=== PATIENT | female | born 1975 | race Two or more races ===

== ENCOUNTER 2021-09-06 14:08 | Outpatient (REF) | payer MEDICAID, SELFPAY ==
--- NOTE | ~2021-09-06 | XR_ITS ---
EXAMINATION: XR KNEE, LEFT CLINICAL INFORMATION: Pain. COMPARISON: None TECHNIQUE: Four views of the left knee. FINDINGS: Bones and soft tissues are normal. No fracture or joint effusion. Alignment is anatomic. Joint spaces are well maintained. No abnormal soft tissue calcification. XR/XR knee LT 2V IMPRESSION: Unremarkable left knee.
[2021-09-06 15:23] LABS: Basophils Absolute Auto 0.1 X10*3/uL (0.0-0.2); Hemoglobin 7.8 g/dl (12.0-16.0); Mean Corpuscular Hemoglobin 16.4 pg (27.0-33.0); Monocytes Percent Auto 8.7 % (2-11); Red Cell Distribution Width 22.8 % (11.0-16.0); SCAN SMEAR FLAG 1
[2021-09-06 15:25] LABS: Eosinophils Absolute Auto 0.2 X10*3/uL (0.0-0.4); Eosinophils Percent Auto 3.3 % (0-4); Hematocrit 29.3 % (37.0-47.0); Imm Gran Abs Auto 0.02 X10*3/uL (0.00-0.03); Imm Gran Pct Auto 0.3 % (0.0-0.4); Lymphocytes Absolute Auto 1.9 X10*3/uL (1.2-4.9); Lymphocytes Percent Auto 33.6 % (20-40); MANUAL DIFF FLAG SCAN; Mean Corpuscular HGB Conc 26.6 g/dl (31.0-35.0); Mean Platelet Volume 9.9 fL (9.4-12.3); Monocytes Absolute Auto 0.5 X10*3/uL (0.1-1.2); Neutrophils Absolute Auto 3.1 x10*3/uL (2.0-8.3); Neutrophils Percent Auto 53.1 % (45-73); Platelet Count 407 X10*3/uL (160-400); Red Blood Count 4.76 X10*6/uL (4.20-5.50); White Blood Count 5.8 X10*3/uL (4.8-10.8)
[2021-09-06 15:39] LABS: Estimated Average Glucose 108 mg/dL; Hemoglobin A1C 77.4712 umol/L; Hemoglobin A1c % 5.4 %
[2021-09-06 15:49] LABS: Alanine Aminotransferase 19 U/L (0-31); Alkaline Phosphatase 67 U/L (39-117); Anion Gap 11 (12-20); Aspartate Amino Transferase 15 U/L (5-31); Bilirubin Total 0.6 mg/dL (0.0-1.0); Blood Urea Nitrogen 14 mg/dL (9-16); Calcium 9.3 mg/dL (8.4-10.2); Carbon Dioxide 24 mmol/L (22-29); Chloride 106 mmol/L (96-108); Cholesterol 178 mg/dL; Estimated Glomerular Filt Rate > 60; Glucose Random 115 mg/dL (60-115); HDL Cholesterol 39 mg/dL; LDL Cholesterol Calculated 116 mg/dl; Potassium 4.3 mmol/L (3.3-5.1); Sodium 137 mmol/L (135-145); Total Protein 7.4 g/dL (6.5-8.0); Triglycerides 119 mg/dL
[2021-09-06 15:59] LABS: Mean Corpuscular Volume 61.6 fL (80.0-98.0); PLT ABN DIST 1
[2021-09-06 16:04] LABS: SLIDE REVIEW VERIFIED
[2021-09-06 16:12] LABS: Creatinine Urine 173.23 mg/dL; Microalbum/Creatinine Ratio Ur 6.3 ug/mg cr
[2021-09-06 16:17] LABS: T4 Thyroxine 7.8 ug/dL (4.5-12.0)
[2021-09-06 16:18] LABS: Thyroid Stimulating Hormone 2.31 uIU/mL (0.32-4.0); Vitamin D 25-OH Total 26.8 ng/mL (>30)
[2021-09-06 16:23] LABS: Folate 11.3 ng/mL (> or = 4.0); Vitamin B12 995 pg/mL (200-900)
[2021-09-08 03:01] LABS: Triiodothyronine T3 Free 2.9 pg/mL (2.3-4.2)
[2021-09-08 17:16] LABS: Homocysteine 7.8 umol/L (<10.4)
[2021-09-09 23:25] LABS: Gastrin 225 pg/mL (<=100)
[2021-09-10 23:16] LABS: Intrinsic Factor Antibodies Negative (Negative)
[2021-09-11 11:27] LABS: Parietal Cell Antibody 64.7 Unit (<=20.0)
[2021-09-12 19:31] LABS: Methylmalonic Acid 73 nmol/L (87-318)
== END 2021-09-06 14:09 | disposition home or self-care (01) ==
LOC: HO.XRAY 14:08
PROVIDERS: PCP Family Medicine; Visit Provider Family Medicine
DX: M25.562 Pain in left knee (principal); E53.8 Deficiency of other specified B group vitamins; E55.9 Vitamin D deficiency, unspecified; R89.9 Unspecified abnormal finding in specimens from other organs, systems and tissues; E03.9 Hypothyroidism, unspecified
CPT/HCPCS: 73560; 80053; 80061; 82043; 82306; 82607; 82746; 82941; 83036; 83090; 83516; 83921; 84436; 84443; 84481; 85025; 86255; 86340

== ENCOUNTER → 2021-11-01 15:57 | Outpatient (BNVA) | payer MEDICAID, SELFPAY | PROVIDERS: PCP Family Medicine; Referring Provider Family Medicine; Visit Provider Nurse Practitioner | DX: D50.9 Iron deficiency anemia, unspecified (principal); N92.0 Excessive and frequent menstruation with regular cycle | CPT/HCPCS: 99202 ==

== ENCOUNTER 2021-11-04 | Outpatient (REF) | payer MEDICAID, SELFPAY ==
[2021-11-08 14:23] LABS: FIT1 NEGATIVE (NEGATIVE)
[2021-11-08 14:24] LABS: FIT Int Ctl YES; FIT2 NEGATIVE (NEGATIVE)
== END 2021-11-04 00:01 | disposition home or self-care (01) ==
LOC: HO.LNP
PROVIDERS: Visit Provider Nurse Practitioner
DX: D50.9 Iron deficiency anemia, unspecified (principal)
CPT/HCPCS: 82274

== ENCOUNTER 2021-12-14 14:14 | Outpatient (REF) | payer MEDICAID, SELFPAY | END 2021-12-14 14:15 | disposition home or self-care (01) | LOC: HO.HMGCX 14:14 | PROVIDERS: Visit Provider Family Medicine | DX: Z13.89 Encounter for screening for other disorder (principal) ==

== ENCOUNTER 2022-01-07 15:47 | Outpatient (REF) | payer MEDICAID, SELFPAY ==
[2022-01-07 16:01] LABS: MANUAL DIFF FLAG NO
[2022-01-07 16:41] LABS: Basophils Absolute Auto 0.1 X10*3/uL (0.0-0.2); Eosinophils Absolute Auto 0.3 X10*3/uL (0.0-0.4); Eosinophils Percent Auto 3.3 % (0-4); Hematocrit 42.5 % (37.0-47.0); Hemoglobin 12.6 g/dl (12.0-16.0); Imm Gran Abs Auto 0.04 X10*3/uL (0.00-0.03); Imm Gran Pct Auto 0.5 % (0.0-0.4); Lymphocytes Absolute Auto 2.3 X10*3/uL (1.2-4.9); Lymphocytes Percent Auto 29.3 % (20-40); Mean Corpuscular HGB Conc 29.6 g/dl (31.0-35.0); Mean Corpuscular Hemoglobin 21.7 pg (27.0-33.0); Mean Corpuscular Volume 73.1 fL (80.0-98.0); Mean Platelet Volume 10.5 fL (9.4-12.3); Monocytes Absolute Auto 0.7 X10*3/uL (0.1-1.2); Monocytes Percent Auto 8.6 % (2-11); Neutrophils Absolute Auto 4.4 x10*3/uL (2.0-8.3); Neutrophils Percent Auto 57.3 % (45-73); Platelet Count 437 X10*3/uL (160-400); Red Blood Count 5.81 X10*6/uL (4.20-5.50); Red Cell Distribution Width 24.1 % (11.0-16.0); SCAN SMEAR FLAG 1; White Blood Count 7.8 X10*3/uL (4.8-10.8)
[2022-01-07 16:42] LABS: PLT ABN DIST 1
== END 2022-01-07 15:48 | disposition home or self-care (01) ==
LOC: HO.LAB 15:47
PROVIDERS: PCP Family Medicine; Visit Provider Nurse Practitioner
DX: D50.9 Iron deficiency anemia, unspecified (principal); N92.0 Excessive and frequent menstruation with regular cycle
CPT/HCPCS: 36415; 85025; 99212

== ENCOUNTER 2022-01-17 14:07 | Outpatient (REF) | payer MEDICAID, SELFPAY ==
--- NOTE | ~2022-01-17 | US_ITS ---
EXAMINATION: US PELVIS CLINICAL INFORMATION: AUB COMPARISON: None TECHNIQUE: Ultrasound of the pelvis is performed using both transabdominal and transvaginal transducers along with Doppler. Transvaginal imaging is performed due to inadequate visualization transabdominally. FINDINGS: Uterus: The uterus is anteverted and measures 9.3 x 4.5 x 5.4 cm. The double wall endometrial thickness is 0.9 mm. The uterus is smooth in contour and has normal myometrial echogenicity. No visible fibroid. Adnexa: Both ovaries are visualized. There is normal color flow to the adnexa. There is no ovarian torsion. There is no pelvic ascites or fluid collection. Right ovary measures 2.6 x 1.7 x 2.9 cm, volume 7.0 mL. Simple appearing cyst involving the right ovary measures 1.2 x 1.0 x 0.3 cm. Left ovary measures 3.5 x 1.0 x 2.2 cm, volume 4.0 mL. US/US pelvic and transvaginal IMPRESSION: 1. No acute process identified. 2. Simple appearing cyst involving the right ovary measures 1.2 x 1.0 x 0.3 cm.
== END 2022-01-17 14:08 | disposition home or self-care (01) ==
LOC: HO.HMGCX 14:07
PROVIDERS: PCP Family Medicine; Visit Provider Family Medicine
DX: N93.9 Abnormal uterine and vaginal bleeding, unspecified (principal)
CPT/HCPCS: 76830; 76856

== ENCOUNTER 2022-03-29 12:50 | Outpatient (REF) | payer MEDICAID, SELFPAY ==
[2022-03-29 15:12] LABS: T4 Thyroxine 7.2 ug/dL (4.5-12.0); Thyroid Stimulating Hormone 2.51 uIU/mL (0.32-4.0)
[2022-03-29 15:26] LABS: Folate 5.3 ng/mL (> or = 4.0); Vitamin B12 695 pg/mL (200-900)
== END 2022-03-29 12:51 | disposition home or self-care (01) ==
LOC: HO.LAB 12:50
PROVIDERS: PCP Family Medicine; Visit Provider Family Medicine
DX: E03.9 Hypothyroidism, unspecified (principal); E53.8 Deficiency of other specified B group vitamins
CPT/HCPCS: 36415; 82607; 82746; 84436; 84443; 84481

== ENCOUNTER 2022-09-19 10:05 | Outpatient (REF) | payer MEDICAID, SELFPAY ==
--- NOTE | ~2022-09-19 | XR_ITS ---
EXAMINATION: XR KNEE, RIGHT XR KNEE, LEFT XR KNEE, BILATERAL CLINICAL INFORMATION: Bilateral knee pain. TECHNIQUE: AP bilateral knee standing 1 view. 2 views each knee. FINDINGS: AP Bilateral Knee: There is mild loss of medial compartment joint space both knees. The lateral compartment joint space is normal. No bony erosive changes or loose bodies seen. Right Knee: There is mild loss of patellofemoral compartment joint space with superior patellar spurring. No loose bodies. No joint effusion. There is minimal superior patellar spurring. No fracture. Left Knee: The patellofemoral compartment joints are preserved. No visible acute fracture, loose bodies or bony erosive changes. The soft tissues are normal. 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 No visible acute fracture or dislocation in either knee. No joint effusion or loose bodies. Minimal bilateral superior patellar spurring.
--- NOTE | ~2022-09-19 | XR_ITS ---
EXAMINATION: XR KNEE, RIGHT XR KNEE, LEFT XR KNEE, BILATERAL CLINICAL INFORMATION: Bilateral knee pain. TECHNIQUE: AP bilateral knee standing 1 view. 2 views each knee. FINDINGS: AP Bilateral Knee: There is mild loss of medial compartment joint space both knees. The lateral compartment joint space is normal. No bony erosive changes or loose bodies seen. Right Knee: There is mild loss of patellofemoral compartment joint space with superior patellar spurring. No loose bodies. No joint effusion. There is minimal superior patellar spurring. No fracture. Left Knee: The patellofemoral compartment joints are preserved. No visible acute fracture, loose bodies or bony erosive changes. The soft tissues are normal. XR/XR knee RT 2V IMPRESSION: Mild degenerative arthritic changes medial compartment both knees. No visible acute fracture or dislocation in either knee. No joint effusion or loose bodies. Minimal bilateral superior patellar spurring.
--- NOTE | ~2022-09-19 | XR_ITS ---
EXAMINATION: XR KNEE, RIGHT XR KNEE, LEFT XR KNEE, BILATERAL CLINICAL INFORMATION: Bilateral knee pain. TECHNIQUE: AP bilateral knee standing 1 view. 2 views each knee. FINDINGS: AP Bilateral Knee: There is mild loss of medial compartment joint space both knees. The lateral compartment joint space is normal. No bony erosive changes or loose bodies seen. Right Knee: There is mild loss of patellofemoral compartment joint space with superior patellar spurring. No loose bodies. No joint effusion. There is minimal superior patellar spurring. No fracture. Left Knee: The patellofemoral compartment joints are preserved. No visible acute fracture, loose bodies or bony erosive changes. The soft tissues are normal. XR/XR knee standing BI IMPRESSION: Mild degenerative arthritic changes medial compartment both knees. No visible acute fracture or dislocation in either knee. No joint effusion or loose bodies. Minimal bilateral superior patellar spurring.
== END 2022-09-19 10:06 | disposition home or self-care (01) ==
LOC: HO.HOSX 10:05
PROVIDERS: Visit Provider Physician Assistant
DX: M22.2X2 Patellofemoral disorders, left knee (principal); M22.2X1 Patellofemoral disorders, right knee; M23.91 Unspecified internal derangement of right knee; M23.92 Unspecified internal derangement of left knee
CPT/HCPCS: 73560; 73565; 99202

== ENCOUNTER 2023-07-19 09:27 | Outpatient (REF) | payer MEDICAID, SELFPAY ==
[2023-07-19 14:26] LABS: MANUAL DIFF FLAG NO
[2023-07-19 14:29] LABS: Basophils Absolute Auto 0.1 X10*3/uL (0.0-0.2); Basophils Percent Auto 1.4 % (0-2); Eosinophils Absolute Auto 0.2 X10*3/uL (0.0-0.4); Eosinophils Percent Auto 3.3 % (0-4); Hematocrit 47.3 % (37.0-47.0); Hemoglobin 16.1 g/dl (12.0-16.0); Imm Gran Abs Auto 0.04 X10*3/uL (0.00-0.03); Imm Gran Pct Auto 0.8 % (0.0-0.4); Lymphocytes Absolute Auto 2.2 X10*3/uL (1.2-4.9); Lymphocytes Percent Auto 42.9 % (20-40); Mean Corpuscular Hemoglobin 30.7 pg (27.0-33.0); Mean Corpuscular Volume 90.3 fL (80.0-98.0); Mean Platelet Volume 10.9 fL (9.4-12.3); Monocytes Absolute Auto 0.3 X10*3/uL (0.1-1.2); Monocytes Percent Auto 6.6 % (2-11); Neutrophils Absolute Auto 2.3 x10*3/uL (2.0-8.3); Platelet Count 296 X10*3/uL (160-400); Red Blood Count 5.24 X10*6/uL (4.20-5.50); Red Cell Distribution Width 13.3 % (11.0-16.0); White Blood Count 5.1 X10*3/uL (4.8-10.8)
[2023-07-19 15:04] LABS: Alanine Aminotransferase 51 U/L (0-31); Albumin Level 3.9 g/dL (3.5-5.0); Alkaline Phosphatase 74 U/L (39-117); Anion Gap 13 (12-20); Aspartate Amino Transferase 30 U/L (5-31); Bilirubin Total 0.7 mg/dL (0.0-1.0); Blood Urea Nitrogen 8 mg/dL (9-16); Calcium 9.2 mg/dL (8.4-10.2); Carbon Dioxide 24 mmol/L (22-29); Chloride 103 mmol/L (96-108); Cholesterol 208 mg/dL (<200); Estimated Glomerular Filt Rate > 60; Glucose Random 97 mg/dL (60-115); HDL Cholesterol 42 mg/dL (>40); Iron 112 mcg/dL (30-160); LDL Cholesterol Calculated 124 mg/dL (<100); Percent Iron Saturation 36 % (15-50); Potassium 3.8 mmol/L (3.3-5.1); Sodium 136 mmol/L (135-145); Total Iron Binding Capacity 312 mcg/dL (228-428); Total Protein 7.3 g/dL (6.5-8.0); Triglycerides 212 mg/dL (<150); Unsaturated Iron Binding 200 ug/dL
[2023-07-19 15:07] LABS: Ferritin 47 ng/mL (10-250); TSH reflex Free T4 4.35 uIU/mL (0.32-4.0)
[2023-07-19 15:18] LABS: Folate 4.3 ng/mL (> or = 4.0); Vitamin B12 > 2000 pg/mL (200-900)
[2023-07-19 17:48] LABS: Free T4 (Free Thyroxine) 0.99 ng/dL (0.71-1.85)
== END 2023-07-19 09:28 | disposition home or self-care (01) ==
LOC: HO.CHCLDS 09:27
PROVIDERS: Visit Provider Family Medicine
DX: D50.9 Iron deficiency anemia, unspecified (principal); E53.8 Deficiency of other specified B group vitamins; E03.8 Other specified hypothyroidism; E66.9 Obesity, unspecified
CPT/HCPCS: 36415; 80053; 80061; 82607; 82728; 82746; 83540; 84439; 84443; 85025

== ENCOUNTER 2023-09-19 15:52 | Outpatient (REF) | payer MEDICAID, SELFPAY ==
[2023-09-19 18:32] LABS: Alanine Aminotransferase 58 U/L (0-31); Albumin Level 4.1 g/dL (3.5-5.0); Alkaline Phosphatase 85 U/L (39-117); Anion Gap 13 (12-20); Aspartate Amino Transferase 31 U/L (5-31); Bilirubin Total 0.8 mg/dL (0.0-1.0); Blood Urea Nitrogen 15 mg/dL (9-16); Calcium 9.9 mg/dL (8.4-10.2); Carbon Dioxide 23 mmol/L (22-29); Chloride 106 mmol/L (96-108); Estimated Glomerular Filt Rate > 60; Glucose Random 138 mg/dL (60-115); Potassium 3.7 mmol/L (3.3-5.1); Sodium 138 mmol/L (135-145); Total Protein 7.6 g/dL (6.5-8.0)
[2023-09-19 18:41] LABS: Gamma Glutamyl Transpeptidase 61 U/L (7-33)
[2023-09-19 18:50] LABS: TSH reflex Free T4 4.43 uIU/mL (0.32-4.0)
[2023-09-19 20:49] LABS: Free T4 (Free Thyroxine) 0.92 ng/dL (0.71-1.85)
[2023-09-20 07:50] LABS: ~HepC Num1 0.19 S/CO (0.00-0.79); ~Hepatitis C Antibody Nonreactive (Nonreactive)
== END 2023-09-19 15:53 | disposition home or self-care (01) ==
LOC: HO.CHCLDS 15:52
PROVIDERS: Visit Provider Family Medicine
DX: Z11.3 Encounter for screening for infections with a predominantly sexual mode of transmission (principal); E03.8 Other specified hypothyroidism; R74.01 Elevation of levels of liver transaminase levels
CPT/HCPCS: 36415; 80053; 82977; 84439; 84443; 86803

== ENCOUNTER 2024-04-03 08:07 | Outpatient (REF) | payer MEDICAID, SELFPAY ==
[2024-04-03 14:21] LABS: MANUAL DIFF FLAG NO
[2024-04-03 14:29] LABS: Basophils Absolute Auto 0.1 X10*3/uL (0.0-0.2); Eosinophils Absolute Auto 0.3 X10*3/uL (0.0-0.4); Eosinophils Percent Auto 3.6 % (0-4); Hematocrit 46.4 % (37.0-47.0); Hemoglobin 15.7 g/dl (12.0-16.0); Imm Gran Abs Auto 0.04 X10*3/uL (0.00-0.03); Imm Gran Pct Auto 0.4 % (0.0-0.4); Lymphocytes Absolute Auto 4.3 X10*3/uL (1.2-4.9); Lymphocytes Percent Auto 46.8 % (20-40); Mean Corpuscular HGB Conc 33.8 g/dl (31.0-35.0); Mean Corpuscular Volume 88.7 fL (80.0-98.0); Mean Platelet Volume 11.2 fL (9.4-12.3); Monocytes Absolute Auto 0.7 X10*3/uL (0.1-1.2); Neutrophils Absolute Auto 3.8 x10*3/uL (2.0-8.3); Neutrophils Percent Auto 41.2 % (45-73); Platelet Count 301 X10*3/uL (160-400); Red Blood Count 5.23 X10*6/uL (4.20-5.50); Red Cell Distribution Width 13.2 % (11.0-16.0); White Blood Count 9.2 X10*3/uL (4.8-10.8)
[2024-04-03 14:48] LABS: Alanine Aminotransferase 30 U/L (0-31); Albumin Level 4.2 g/dL (3.5-5.0); Alkaline Phosphatase 95 U/L (39-117); Anion Gap 10 (12-20); Aspartate Amino Transferase 22 U/L (5-31); Bilirubin Total 0.5 mg/dL (0.0-1.0); Blood Urea Nitrogen 9 mg/dL (9-16); Calcium 9.2 mg/dL (8.4-10.2); Carbon Dioxide 25 mmol/L (22-29); Chloride 106 mmol/L (96-108); Estimated Glomerular Filt Rate > 60; Glucose Random 145 mg/dL (60-115); Iron 50 mcg/dL (30-160); Percent Iron Saturation 15 % (15-50); Potassium 3.3 mmol/L (3.3-5.1); Sodium 138 mmol/L (135-145); Total Iron Binding Capacity 335 mcg/dL (228-428); Total Protein 7.5 g/dL (6.5-8.0); Unsaturated Iron Binding 285 ug/dL
[2024-04-03 15:09] LABS: Ferritin 27 ng/mL (10-250); TSH reflex Free T4 5.39 uIU/mL (0.32-4.0); Vitamin D 25-OH Total 36.7 ng/mL (>30)
[2024-04-03 15:12] LABS: Folate 3.3 ng/mL (> or = 4.0); Vitamin B12 610 pg/mL (200-900)
[2024-04-03 15:38] LABS: Free T4 (Free Thyroxine) 1.11 ng/dL (0.71-1.85)
== END 2024-04-03 08:08 | disposition home or self-care (01) ==
LOC: HO.CHCLDS 08:07
PROVIDERS: Visit Provider Family Medicine
DX: E03.8 Other specified hypothyroidism (principal); E55.9 Vitamin D deficiency, unspecified
CPT/HCPCS: 36415; 80053; 82306; 82607; 82728; 82746; 83540; 84439; 84443; 85025

== ENCOUNTER 2024-05-27 10:15 | Outpatient (REF) | payer MEDICAID, SELFPAY ==
[2024-05-27 14:51] LABS: TSH reflex Free T4 2.45 uIU/mL (0.32-4.0)
== END 2024-05-27 10:16 | disposition home or self-care (01) ==
LOC: HO.CHCLDS 10:15
PROVIDERS: Visit Provider Family Medicine
DX: E03.8 Other specified hypothyroidism (principal)
CPT/HCPCS: 36415; 84443

== ENCOUNTER 2024-06-04 15:15 | Outpatient (REF) | payer MEDICAID, SELFPAY | END 2024-06-04 15:16 | disposition home or self-care (01) | LOC: HO.MAMMO 15:15 | PROVIDERS: PCP Family Medicine; Visit Provider Family Medicine | DX: Z12.31 Encounter for screening mammogram for malignant neoplasm of breast (principal) | CPT/HCPCS: 77063; 77067 ==

== ENCOUNTER → 2024-06-04 15:30 | Outpatient (BNV) | payer MEDICAID, SELFPAY | PROVIDERS: PCP Family Medicine; Visit Provider Internal Medicine | DX: Z12.31 Encounter for screening mammogram for malignant neoplasm of breast (principal) | CPT/HCPCS: 77063; 77067 ==